=== PATIENT | male | born 1930 | race Caucasian/White ===

== ENCOUNTER 2018-02-28 10:10 | Outpatient (CLI) | payer MEDICARE ==
--- NOTE | 2018-02-28 11:39 | ULT ---
TESTICULAR ULTRASOUND WITH DOPPLER: Date 02/28/18 HISTORY: Follow-up exam is required. Previous ultrasound suggested a left and right testicle. Based on patient history and physical exam, the left testicle appears to be absent. TECHNIQUE: Castellon scale, color flow, and Doppler imaging of the right testicle was performed. Images were reviewed . Real-time images were also performed in the presence of a radiology. COMPARISON: 02/22/18. FINDINGS: Right testicle is identified with a normal echotexture. No intratesticular mass. Right testicle measu res 3.2 x 4.3 x 2.5 cm. Right epididymis has a normal echotexture, measuring 0.7 x 1.0 cm. There is v ascular flow to the right testicle. Left hemiscrotum: No evidence of a left testicle. Large left-sided hydrocele is identified. IMPRESSION: 1. Large left-sided hydrocele. No evidence of a left testicle. 2. Normal appearing right testicle with vascular flow. POS: [facility]
== END 2018-02-28 10:11 | disposition home or self-care (01) ==
LOC: ULT 10:10
PROVIDERS: ATTEND Urology
DX: N40.0 Benign prostatic hyperplasia without lower urinary tract symptoms (principal); N43.3 Hydrocele, unspecified

== ENCOUNTER 2018-04-01 16:18 | Observation (INO) | payer MEDICARE ==
[2018-04-01 16:45] LABS: #Lymphocytes 0.5 thou/uL (1.20-3.40); #Monocytes 0.4 thou/uL (0.11-0.59); #Neutrophils 3.6 thou/uL (1.40-6.50); %Eosinophils 0.6 % (0.0-10.0); %Lymphocytes 10.2 % (21.0-51.0); %Monocytes 8.7 % (0.0-10.0); %Neutrophils 80.6 % (42.0-75.0); Hemoglobin 11.8 g/dL (14.0-18.0); Mean Corpuscular HGB CONC 34.3 g/dL (32.0-36.0); Mean Corpuscular Volume 84.5 fL (78.0-98.0); Mean Platelet Volume 6.2 fL (7.4-10.4); Platelet Count 168 thou/uL (130-400); RBC Distribution Width 12.9 % (11.5-14.5); Red Blood Cell (RBC) Count 4.07 mill/uL (4.70-6.10); White Blood Cell (WBC) Count 4.5 thou/uL (4.8-10.8)
[2018-04-01 17:02] LABS: ALT (SGPT) 8 U/L (8-55); AST (SGOT) 15 U/L (5-34); Albumin 3.8 g/dL (3.4-4.8); Alkaline Phosphatase 121 U/L (40-150); Anion Gap 12 mmol/L (10-20); BUN (Urea Nitrogen) 26 mg/dL (8.4-25.7); Bilirubin, Total 0.4 mg/dL (0.2-1.2); Calc. Creatinine Clearance 0 mL/min (70-130); Carbon Dioxide 22 mmol/L (23-31); Chloride 106 mmol/L (98-107); Estimated GFR-MDRD 52; Globulin 2.9 g/dL (2.4-3.5); Glucose 103 mg/dL (83-110); Lipase 25 U/L (8-78); Magnesium 1.9 mg/dL (1.6-2.6); Potassium 3.6 mmol/L (3.5-5.1); Protein, Total 6.7 g/dL (5.8-8.1); Sodium 136 mmol/L (136-145)
[2018-04-01 17:03] LABS: Bilirubin Negative (Negative); Blood, Urine Moderate (Negative); Clarity CLOUDY (Clear); Glucose, Urine (Dipstick) Negative (Negative); Leukocyte Large (Negative); Nitrite Positive (Negative); Protein, Urine (Dipstick) Trace mg/dL (Neg-Trace); Specific Gravity, Urine 1.016 (1.002-1.036); Urobilinogen 0.2 mg/dL (0.2-1.0)
[2018-04-01 17:06] LABS: CKMB 1.3 ng/mL (0-6.6); Troponin I 0.029 ng/mL (< 0.028)
[2018-04-01 17:06] LABS: Bacteria/HPF 4+ HPF (None Seen); RBC/HPF 0-3 HPF (0-3); Squamous Epithelial None Seen HPF (0-3); WBC/HPF 21-50 HPF (0-3)
[2018-04-01 17:08] LABS: Pathc Cast-AUWi Flag 3.19 (0-2.49)
[2018-04-01 17:15] LABS: Hyaline Casts/LPF 0-3 HYALINE CAST LPF (0-3 Hyaline); Manual Microscopic Reviewed? No Path Casts Seen
--- NOTE | 2018-04-01 17:31 | RAD ---
PORTABLE CHEST ONE VIEW: 04/01/18 at 4:02 p.m. HISTORY: Cough. FINDINGS: Comparison is made with 03/26/17. Changes of median sternotomy again seen. The heart size is normal. The aorta is tortuous. Chronic aurelia nges are again noted. There is continued mild elevation of the left hemidiaphragm. No focal areas of consolidation, pneumothoraces or pleural effusions are seen. Deformity in the right upper lateral [address] wall and scapula and right ribs is again seen. IMPRESSION: No acute process. POS: [facility]
[2018-04-01] MEDS ORDERED: cefTRIAXone\\ROCEPHIN 1 GM VIAL ONE (20:13)
[2018-04-01 20:40] LABS: Troponin I 0.033 ng/mL (< 0.028)
[2018-04-01 21:36] VITALS: BMI 27.1
[2018-04-01] MEDS ORDERED: Famotidine 20 MG TAB PO SCH ×2 (21:44→22:00)
[2018-04-01] MEDS ORDERED: cloNIDine 0.1 MG TAB PO PRN (21:44)
[2018-04-01] MEDS ORDERED: Acetaminophen 500 MG TAB PO PRN (21:44)
[2018-04-01] MEDS ORDERED: Carvedilol 3.125 MG TAB PO SCH ×2 (21:44→22:00)
[2018-04-01] MEDS ORDERED: Ondansetron HCl/PF 4 MG/2 ML Vial IVP PRN (21:44)
[2018-04-01] MEDS ORDERED: hydrALAZINE 20 MG/ML VIAL SLOW IVP PRN (21:44)
[2018-04-01] MEDS ORDERED: Ondansetron ODT 4 MG TAB PO PRN (21:44)
[2018-04-01] MEDS ORDERED: Tamsulosin HCl 0.4 MG CAP PO SCH (23:00)
[2018-04-01 23:01] LABS: Troponin I 0.028 ng/mL (< 0.028)
[2018-04-01] MEDS: Sodium Chloride 0.9% 1,000 ML IV SCH (23:10)
--- NOTE | 2018-04-02 05:45 | HP ---
DATE OF ADMISSION: 04/01/2018 PRIMARY CARE PROVIDER: Dr. Simpson. CHIEF COMPLAINT: General weakness. HISTORY OF PRESENT ILLNESS: This is an 88-year-old male who presents to [facility] Emergency Department complaining of general weakness over the last 48 hours. The pat ient admits to subjective fever measured at 99.2 degrees Fahrenheit. The patient had 2 episodes of d iarrhea, but denies any increased cough, congestion, exposure history, recent travel, or known sick c ontacts. The patient does admit to regular bladder self- catheterization up to 5 times daily due to urinary retention. The patient has been followed by the Urology Service with plans for potential cir cumcision later in 2018. The patient denies any recent falls, trauma, chest pain, unilateral weaknes s, or visual disturbance. The patient states he has mainly been sitting in his recliner, unable to d o his regular activities at home. The patient lives independently normally attending his house chore s as well as garden. The patient denies taking any specific new medication or attempting anything to relieve the symptoms. In the emergency room, the patient underwent general evaluation including scr eening metabolic survey showing urinalysis positive for nitrites and leukocyte esterase concerning fo r infectious process. The patient received Rocephin 1 gram IV x1 dose in addition to aspirin 324 mg. The patient was referred to the Hospitalist Service for admission. PAST MEDICAL HISTORY: 1. Coronary artery disease, chronic and stable. 2. Benign prostatic hypertrophy with urinary retention and scheduled bladder self-catheterizations. 3. Hypertension. 4. History of basal cell carcinoma, status post excision. 5. Chronic Macedo's palsy. 6. History of left-sided crush injury status post to fall off roof in 1973. PAST SURGICAL HISTORY: 1. Status post coronary artery bypass grafting 2003. 2. Status post cataract removal. 3. Status post cardiac catheterization 1991. 4. Status post colonoscopy x4. 5. Status post excision of squamous cell carcinoma. CURRENT MEDICATIONS: 1. Enteric-coated aspirin 81 mg 1 tab p.o. daily. 2. Coreg 3.125 mg p.o. b.i.d. 3. Lisinopril/hydrochlorothiazide 40/50 mg 1 tab p.o. daily. 4. Multivitamin 1 tab p.o. daily. 5. [place] 3 fatty acids 1000 mg p.o. b.i.d. 6. Flomax 0.4 mg p.o. daily. 7. Finasteride 5 mg p.o. daily. ALLERGIES: No known drug allergies. FAMILY HISTORY: Mother of apparent old age at 87 years. Father of myocardial infarction a t age of 52. SOCIAL HISTORY: The patient resides in [place], [place]. No current alcohol, tobacco or illicit drug use. Accompanied by his son and [id number] in the hospital. Functional of all activities of d [facility]. Ambulatory without assistive device. No recent fall. REVIEW OF SYSTEMS: The following complete review of systems was negative, unless otherwise mentioned in the HPI or below: Constitutional: Weight loss or gain, ability to conduct usual activities. Sk in: Rash, itching. Eyes: Double vision, pain. ENT/Mouth: Nose bleeding, neck stiffness, pain, te nderness. Cardiovascular: Palpitations, dyspnea on exertion, orthopnea. Respiratory: Shortness of breath, wheezing, cough, hemoptysis, fever or night sweats. Gastrointestinal: Poor appetite, abdom inal pain, heartburn, nausea, vomiting, constipation, or diarrhea. Genitourinary: Urgency, frequenc y, dysuria, nocturia. Musculoskeletal: Pain, swelling. Neurologic/Psychiatric: Anxiety, depressio n. Allergy/Immunologic: Skin rash, bleeding tendency. PHYSICAL EXAMINATION: VITAL SIGNS: On admission, blood pressure 114/66, pulse 88, respiratory rate is 16, temperature 98.6 degrees Fahrenheit, O2 saturation 93% on room air. GENERAL APPEARANCE: This is an 88-year-old male, alert and oriented x3, pleasant, conversa nt, in no acute distress. HEENT: Pupils are equal, round, and reactive to light and accommodation. Extraocular muscles are in tact. No scleral icterus, no conjunctival injection. Nares patent. OP is clear. Oral mucosa dry a ppearing. NECK: Supple. No cervical adenopathy, no thyromegaly, no carotid bruits, no JVD appreciated. Cervi joshua spine with full active and passive range of motion. No meningeal signs appreciated. CHEST: Lungs are clear to auscultation bilaterally. CARDIOVASCULAR: S1, S2 with 1-2/6 systolic ejection murmur in the right upper sternal border. No ga llop or rub. ABDOMEN: Rounded, soft, nontender, nondistended. Bowel sounds are positive in all four quadrants. There is no hepatosplenomegaly, no abdominal bruits, no rebound or guarding appreciated. EXTREMITIES: Warm and dry with good turgor. No clubbing, cyanosis or asymmetric edema appreciated. Pulses palpable distally at the dorsalis pedis, posterior tibial, and popliteal arteries bilaterally . Capillary refill less than 2 seconds. NEUROLOGIC: Cranial nerves II-XII are grossly intact. No focal deficits appreciated. PERTINENT LABORATORY AND X-RAY FINDINGS: Sodium 136, potassium 3.6, chloride 106, CO2 of 22, anion g ap of 12, BUN 26, creatinine 1.30, estimated GFR 52, glucose 103, calcium 9.0, magnesium 1.9. LFTs w ithin normal limits. Troponin I 0.029, albumin 3.8, lipase 25. CBC showed a white blood cell count of 4.5, hemoglobin 12, hematocrit 34, platelet count 168 with 81% neutrophils. Urinalysis showed mod erate blood, positive nitrite, large leukocyte esterase with 21-50 wbcs per high power field, 4+ bact eria noted. Portable chest x-ray dated 04/01/2018 showed no acute cardiopulmonary process. EKG date d 04/01/2018 by my interpretation shows a sinus mechanism with heart rates in the 80s. Normal R-wave progression noted in the precordial leads. Normal axis. ST-T wave depression noted in V3 through V 6. ASSESSMENT AND PLAN: 1. Urinary tract infection. The patient will be placed in observation status on the telemetry unit. We will continue Rocephin 2 grams IV q.24 hours. Urine culture pending. We will continue intraven ous normal saline at 75 mL per hour. 2. Acute kidney injury, mild. We will continue intravenous fluids as outlined previously. Avoid ne phrotoxic agents and limit contrast exposure. Repeat creatinine in the a.m. 3. Elevated troponin I. We will continue troponin I trending. No current evidence to suggest acute coronary syndrome. Suspect demand state giving patient's urinary tract infection. 4. Urinary retention. We will continue bladder self-catheterizations. Continue Flomax and finaster marcos. 5. Coronary artery disease. Chronic and stable. Resume aspirin 81 mg daily. Continue carvedilol 3 .125 mg b.i.d. 6. Prophylaxis. Sequential compression devices while in bed. Pepcid 20 mg p.o. b.i.d. 7. Code status is FULL. Surrogate medical decision maker is patient's son.
[2018-04-02 06:51] LABS: Anion Gap 12 mmol/L (10-20); BUN (Urea Nitrogen) 22 mg/dL (8.4-25.7); Calc. Creatinine Clearance 66 mL/min (70-130); Calcium 8.8 mg/dL (7.8-10.44); Carbon Dioxide 24 mmol/L (23-31); Chloride 105 mmol/L (98-107); Estimated GFR-MDRD 64; Glucose 98 mg/dL (83-110); Potassium 3.7 mmol/L (3.5-5.1); Sodium 137 mmol/L (136-145)
[2018-04-02 07:28] LABS: Band 11 % (5-11); Hemoglobin 10.3 g/dL (14.0-18.0); Lymphocytes 14 % (21-51); MDiff Complete? YES; Mean Corpuscular HGB CONC 32.6 g/dL (32.0-36.0); Mean Corpuscular Hemoglobin 28.1 pg (27.0-31.0); Mean Corpuscular Volume 86.2 fL (78.0-98.0); Mean Platelet Volume 6.6 fL (7.4-10.4); Monocytes 16 % (0-10); Neutrophil 58 % (42-75); Platelet Count 130 thou/uL (130-400); RBC Distribution Width 12.9 % (11.5-14.5); Reactive Lymphocytes 1 % (0-10); Red Blood Cell (RBC) Count 3.66 mill/uL (4.70-6.10); White Blood Cell (WBC) Count 4.1 thou/uL (4.8-10.8)
[2018-04-02] MEDS ORDERED: Prevnar 13-Val Conj/PF 0.5 ML SYRINGE IM ONE (09:00)
[2018-04-02] MEDS ORDERED: cefTRIAXone\\ROCEPHIN 2 GM in Sodium Chloride 0.9% 100 ML IVPB SCH (09:00)
[2018-04-02] MEDS ORDERED: Tamsulosin HCl 0.4 MG CAP PO SCH ×2 (09:00→21:00)
[2018-04-02] MEDS ORDERED: Aspirin 81 mg Enteric Coated Tablet PO SCH (09:00)
[2018-04-02] MEDS ORDERED: Famotidine 20 MG TAB PO SCH (09:00)
[2018-04-02] MEDS ORDERED: Finasteride 5 MG TAB PO SCH (09:00)
[2018-04-02] MEDS: Sodium Chloride 0.9% 1,000 ML IV SCH (10:42)
[2018-04-02 11:25] VITALS: BP 141/65; TEMP 98.9
--- NOTE | 2018-04-03 01:16 | DIS ---
DATE OF ADMISSION: 04/01/2018 DATE OF DISCHARGE: 04/02/2018 DISCHARGE DIAGNOSES: 1. Urinary tract infection with gram-negative rods. 2. Acute kidney injury, mild, resolving. 3. Elevated troponin I secondary to acute kidney injury. 4. Urinary retention, chronic, with bladder self catheterizations. 5. Coronary artery disease, chronic and stable. CONSULTATIONS: None. PERTINENT LAB AND X-RAY FINDINGS: Creatinine ranged between 1.09 to 1.30, estimated GFR ranging betw een 52 to 64. Magnesium 1.9. Calcium 9.0. Troponin I ranged between 0.028 to 0.033. CBC showed a white blood cell count ranging between 4.1 to 4.5, hemoglobin ranged between 10.3 to 11.8. Urine cul ture dated 04/01/2018 showed greater than 100,000 colonies of gram negative rods. Final identificati on pending. Blood cultures x2 from 04/01/2018 showed no growth to date. Portable chest x-ray dated 04/01/2018 showed no acute cardiopulmonary process. HOSPITAL COURSE: The patient was observed after presenting with generalized weakness. The patient u nderwent general evaluation focused on infectious process after patient presented with low grade feve r. Patient with scheduled bladder self catheterizations at home secondary to urinary retention with attention focused on urinary tract infection. The patient was placed on IV Rocephin and given intrav enous normal saline after mild acute kidney injury was noted. Urine culture did show greater than 10 0,000 colonies of gram-negative rods with transition to Augmentin 500 mg b.i.d. for discharge. Overa ll, patient remained clinically stable throughout the hospital course, tolerating regular oral intake , voiding appropriately and ambulating without assistance or difficulty. I have examined the patient at the time of discharge and discussed followup instructions as well as pertinent laboratory finding s. The patient verbalizes understanding and agreement, and ready for discharge on 04/02/2018. DISCHARGE MEDICATIONS: 1. Augmentin 500 mg 1 tab p.o. b.i.d. x7 days. 2. Enteric-coated aspirin 81 mg p.o. at bedtime. 3. Finasteride 5 mg p.o. daily. 4. Lisinopril/hydrochlorothiazide 10/12.5 mg 1 tab p.o. daily. 5. [place] 3 fatty acids 1000 mg p.o. b.i.d. 6. Flomax 0.4 mg p.o. at bedtime. 7. Tramadol 50 mg p.o. b.i.d. p.r.n. 8. Multivitamin 1 tablet p.o. daily. FOLLOWUP: The patient will follow up with his primary care provider, Dr. Ez Simpson within 7 days of discharge. CONDITION ON DISCHARGE: Stable. ACTIVITY: Ad luther. DIET: Regular. CODE STATUS: FULL. DISPOSITION: Home, 04/02/2018.
== END 2018-04-02 14:13 | disposition home or self-care (01) ==
LOC: ERS 16:18 → 2SW 18:56
PROVIDERS: ADMIT Family Medicine; ATTEND Family Medicine
DX: N39.0 Urinary tract infection, site not specified (principal); N17.9 Acute kidney failure, unspecified; R33.9 Retention of urine, unspecified; I25.10 Atherosclerotic heart disease of native coronary artery without angina pectoris; I10 Essential (primary) hypertension; Z79.899 Other long term (current) drug therapy
CPT/HCPCS: 51701; 71045; 80048; 80053; 82553; 83690; 83735; 84484 ×2; 85007; 85025; 85027; 87040; 87077; 87086; 87186; 90670; 93005; 96361 ×2; 96365; 99285; G0009; G0378; 36415; 81003; 81015; 90471; J0696; J7050

== ENCOUNTER 2018-06-06 05:38 | Day surgery (SDC) | payer MEDICARE ==
[2018-05-30 15:55] VITALS: BMI 28.0
[2018-06-06] MEDS ORDERED: cefTRIAXone\\ROCEPHIN 1 GM VIAL ONE (06:10)
[2018-06-06] MEDS ORDERED: Sodium Chloride 0.9% 100 ML ONE (06:11)
[2018-06-06] MEDS ORDERED: Ampicillin 2 GM in Sodium Chloride 0.9% 100 ML IVPB SCH (06:30)
[2018-06-06] MEDS ORDERED: Iothalamate Meglumine 60% 50 ML VIAL FS ONE (07:03)
[2018-06-06] MEDS ORDERED: Fentanyl 100 MCG/2 ML VIAL ONE (07:27)
[2018-06-06] MEDS ORDERED: Bacitracin Zinc Ointment 30 gm TUBE ONE (07:30)
[2018-06-06] MEDS ORDERED: Furosemide 20 MG/2 ML VIAL ONE (07:30)
[2018-06-06] MEDS ORDERED: Lidocaine 1% (PF) 30 ML VIAL ONE (07:30)
[2018-06-06] MEDS ORDERED: Bupivacaine 0.25% HCL 30 ML VIAL ONE (07:30)
[2018-06-06] MEDS ORDERED: Phenylephrine HCL 10 MG/ML VIAL ONE ×2 (07:33→07:34)
--- NOTE | 2018-06-06 13:40 | OP ---
DATE OF PROCEDURE: 06/06/2018 PREOPERATIVE DIAGNOSES: Benign prostatic hypertrophy, retention, urinary tract infections, mild phim osis. POSTOPERATIVE DIAGNOSES: Benign prostatic hypertrophy, retention, urinary tract infections, mild phi mosis. PROCEDURE: GreenLight laser vaporization of the prostate as well as circumcision. SURGEON: Uma Galvez M.D. ANESTHESIA: General with laryngeal mask airway, as well as penile block using 10 mL lidocaine and Ma rcaine mixture. FINDINGS: Adequate opening of the prostatic urethra. Standard circumcision. A total of 108,876 nate les were used. DRAINS: Drains remaining was 18-Marshallese and 20 Marshallese 2-way. COMPLICATIONS: No complications. ESTIMATED BLOOD LOSS: Minimal. INDICATIONS: The patient is an 88-year-old male who I saw in the office and was requiring CSE but he did have occasional episodes where he was able to void. For this reason, we discussed resecting his remaining and recurrent growth from his remote prior TURP in hopes that he would be able to cath les s or potentially not at all, as well as doing a circumcision to reduce the chance for infections. TECHNIQUE: The patient was brought into the room by Anesthesia, laid on the table in supine position . After receiving general anesthetic, legs were placed in lithotomy position. His perineum was prep ped and draped in sterile fashion. Using a 22.5 Marshallese cystoscope and 30 degree lens which was trave rsed and the bladder inspected. Ureteral orifices were identified and preserved throughout the case. They were patulous and far back. The bladder neck was elevated. The proximal middle lobe was take n down still, but the bladder neck itself was elevated with both recurrence, and somewhat of a contra ction. This was taken all the way down to the trigone and was taken down to the level of the bladder floor posteriorly, power level of 80 was used near the bladder neck. The power level of 80 was used near the vera and a power of 180 was used to remove the remaining lateral lobes and bring that bladd er neck down to the level of the mid prostatic floor. The anterior portion of the prostate, both lef t and right was hanging down as well so these were transected or enucleated. All the chips were annabelle sophie. Scope was put back in with the bladder decompressed and hemostasis was insured. At this point t he vera itself was kind of sticking up and potentially obstructive so this was vaporized. Then, agacalvin n, the scope was broken apart so that the bladder could be fully irrigated. All chips and debris wer e irrigated out. The scope was removed in its entirety and a 20 Marshallese Hutchins was placed to gravity a nd plugged and the patient was then returned to supine and transferred to an OR suite. In supine position, a penile block was delivered using 10 mL of lidocaine and Marcaine and then he wa s prepped and draped in sterile fashion. Using 2 circumferential incisions, 1 with the foreskin redu josee to the level of the garcia, the other with the foreskin retracted approximately 5 mm proximal to the garcia, the skin was excised sharply. Hemostasis was achieved with electrocautery and then the s kin edges were reapproximated using 3-0 and 4-0 chromic in interrupted fashion. Bacitracin, sterile dressing was applied including Coban wrap. Then, the catheter was unplugged and irrigated and minima l blood was noted, otherwise fairly clear, had no clots, so at this point [facility] and the patient was awakened fully and transferred to the PACU in stable condition.
== END 2018-06-06 13:55 | disposition home or self-care (01) ==
LOC: SDC 05:38
PROVIDERS: ATTEND Urology
PROC: 0V507ZZ Destruction of Prostate, Via Natural or Artificial Opening (ICD-10-PCS; principal; 2018-06-06)
PROC: 0VTTXZZ Resection of Prepuce, External Approach (ICD-10-PCS; 2018-06-06)
DX: N41.1 Chronic prostatitis (principal); N47.1 Phimosis; N40.1 Benign prostatic hyperplasia with lower urinary tract symptoms; R33.8 Other retention of urine; E78.00 Pure hypercholesterolemia, unspecified; I10 Essential (primary) hypertension; Z79.82 Long term (current) use of aspirin; Z79.899 Other long term (current) drug therapy
CPT/HCPCS: 88305; J0131; J0290; J0696; J1940; J2001; J2370; J3010; J7050; Q9961; S0020

== ENCOUNTER 2018-08-16 08:42 | Day surgery (SDC) | payer MEDICARE ==
[2018-08-15 13:25] VITALS: BMI 29.9
[2018-08-16] MEDS ORDERED: PROPOFOL 200 MG/20 ML VIAL ONE (09:07)
[2018-08-16 09:45] LABS: #Eosinphils 0.1 thou/uL (0.0-0.7); #Lymphocytes 1.1 thou/uL (1.20-3.40); #Monocytes 0.5 thou/uL (0.11-0.59); #Neutrophils 3.1 thou/uL (1.40-6.50); %Basophils 0.5 % (0.0-1.0); %Eosinophils 1.9 % (0.0-10.0); %Lymphocytes 22.3 % (21.0-51.0); %Monocytes 10.4 % (0.0-10.0); %Neutrophils 64.9 % (42.0-75.0); Hemoglobin 11.8 g/dL (14.0-18.0); Mean Corpuscular HGB CONC 32.2 g/dL (32.0-36.0); Mean Corpuscular Hemoglobin 26.9 pg (27.0-31.0); Mean Corpuscular Volume 83.8 fL (78.0-98.0); Mean Platelet Volume 6.3 fL (7.4-10.4); Platelet Count 233 thou/uL (130-400); RBC Distribution Width 13.4 % (11.5-14.5); Red Blood Cell (RBC) Count 4.37 mill/uL (4.70-6.10); White Blood Cell (WBC) Count 4.8 thou/uL (4.8-10.8)
[2018-08-16 09:59] LABS: Anion Gap 11 mmol/L (10-20); BUN (Urea Nitrogen) 22 mg/dL (8.4-25.7); Calc. Creatinine Clearance 75 mL/min (70-130); Calcium 9.8 mg/dL (7.8-10.44); Carbon Dioxide 27 mmol/L (23-31); Chloride 104 mmol/L (98-107); Estimated GFR-MDRD 65; Glucose 99 mg/dL (83-110); Sodium 138 mmol/L (136-145)
[2018-08-16] MEDS ORDERED: Bacitracin Zinc Ointment 30 gm TUBE ONE (10:56)
[2018-08-16] MEDS ORDERED: Lidocaine 1% w/Epinephrine 1:100K 30 ML VIAL ONE (10:56)
[2018-08-16] MEDS ORDERED: Fentanyl 100 MCG/2 ML VIAL ONE (11:02)
--- NOTE | 2018-08-16 12:46 | EKG ---
Test Reason : PREOP Blood Pressure : / mmHG Vent. Rate : 064 BPM Atrial Rate : 064 BPM P-R Int : 206 ms QRS Dur : 094 ms QT Int : 418 ms P-R-T Axes : -12 043 080 degrees QTc Int : 431 ms Sinus rhythm with frequent Premature ventricular complexes in a pattern of bigeminy Nonspecific T wave abnormality Abnormal ECG When compared with ECG of 01-APR-2018 16:35, Premature ventricular complexes are now Present T wave inversion no longer evident in Anterior leads Confirmed by DR. Warren PELAEZ ([id number]) on 08/16/2018 12:46:23 PM Referred By: SALVADOR Confirmed By:DR. Warren PELAEZ
--- NOTE | 2018-08-17 15:05 | OP ---
DATE OF PROCEDURE: 08/16/2018 PREOPERATIVE DIAGNOSIS: Nasal tip basal cell carcinoma. POSTOPERATIVE DIAGNOSIS: Nasal tip basal cell carcinoma. PROCEDURES: 1. Wide local excision of nasal tip. 2. Bilobed local regional transposition flap. SURGEON: Reynaldo Camejo M.D. ESTIMATED BLOOD LOSS: 2 mL. COMPLICATIONS: None. ANESTHESIA: TIVA. PROCEDURE: The patient was taken to the operating room and placed supine on the table. TIVA anesthe brie was obtained by the Anesthesia staff. The nasal cavity and the nose was prepped and draped for s tandard surgical procedure. Following this, 2 mL of 1% lidocaine with epinephrine was injected into the nasal tip and the advancement area. Following this, a 5-8 mm margin was taken around this, the n noé tip cancer. The margins were sent for pathological analysis which showed no residual malignancy . Following this, a bilobed flap was outlined and then transposed covering the area. The flap was c losed using Monocryl stitches for the subcuticular layer and Prolene stitches for the skin. The ethel ent tolerated the procedure well.
--- NOTE | 2018-08-22 05:28 | PQF ---
[facility] POST DISCHARGE CLINICAL DOCUMENTATION IMPROVEMENT CLARIFICATION FORM l Todays Date: 08/22/18 l Patients Name ERIC MONTES l l Admit Date 08/16/18 l Disch Date 08/16/18 Estate Planning Attorney Name Jose Xiong Email: [email or web address] Cell: [phone] To be completed by Estate Planning Attorney: Present Clinical Indicators - Signs / Symptoms Results and Location in Medical Record [ ] Documentation of: [ ] [ ] Documentation of: [ ] [ ] Documentation of: [ ] [ ] Documentation of: [ ] [ ] Risks [ ] [ ] [ ] Treatment [ ] BASAL CELL CARCINOMA OF NOSE Query for area (sq cm) of transposition flap [ ] [ ] To be completed by Physician: ANAMIKA MERA The documentation in this patients record requires clarification to ensure coding compliance and accuracy. Check the appropriate box and include in your discharge summary. [ ] [ ] [ ] [ ] Please check this box if this does not apply to this patient [ ] Unable to determine [ ] Other diagnosis: Review the following information and exercise your independent professional judgment in responding to the clarification. Based upon the clinical findings, risk factors, and treatment, please clarify if you are treating one of the above probable or suspected diagnoses. Physician Signature: Date Time MTDD
== END 2018-08-16 12:54 | disposition home or self-care (01) ==
LOC: SDC 08:42
PROVIDERS: ATTEND Otolaryngology Plastic Surgery within the Head & Neck
PROC: 0HX1XZZ Transfer Face Skin, External Approach (ICD-10-PCS; principal; 2018-08-16)
PROC: 0HB1XZZ Excision of Face Skin, External Approach (ICD-10-PCS; 2018-08-16)
DX: C44.311 Basal cell carcinoma of skin of nose (principal); L57.0 Actinic keratosis; L57.8 Other skin changes due to chronic exposure to nonionizing radiation; E78.00 Pure hypercholesterolemia, unspecified; I10 Essential (primary) hypertension; I25.10 Atherosclerotic heart disease of native coronary artery without angina pectoris; I25.2 Old myocardial infarction; G62.9 Polyneuropathy, unspecified; Z79.82 Long term (current) use of aspirin; Z79.899 Other long term (current) drug therapy
CPT/HCPCS: 36415; 80048; 85025; 88305; 88331; 93005; 93010; J2001; J2704; J3010

== ENCOUNTER 2019-03-08 09:22 | Outpatient (CLI) | payer MEDICARE ==
[~2019-03-08 09:22] MED LIST: Iopamidol 370 76% 100 ML VIAL ONE
--- NOTE | 2019-03-08 12:21 | CT ---
CT ANGIOGRAM NECK WITH CONTRAST: DATE: 03/08/2019. 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 TECHNIQUE: Following IV injection of 70 mL of Isovue 370, arterial bolus chasing technique scan was performed fr om slightly inferior to the sarah to the lower edge of the orbits. Coronal and sagittal 3D MIP recon structions. FINDINGS: There is a type II odontoid fracture with sclerotic fracture edges, and nonunion, with minimal dorsal angulation and minimal dorsal displacement of the superior fragment. Multilevel high-grade facet DJ D at upper and mid levels. High-grade degenerative disk disease at mid and lower levels. Multiple, displaced old right rib fracture deformities, many of them protruding into the right pleura l space and displacing adjacent lung parenchyma. AORTIC ARCH: Ectasia and mild to moderate atherosclerotic calcification. No focal aneurysm. INNOMINATE: No high-grade stenosis. RIGHT SUBCLAVIAN: No high-grade stenosis. RIGHT COMMON CAROTID: No high-grade stenosis. RIGHT INTERNAL CAROTID: Heavily calcified atheromatous plaque proximally, including at origin at the carotid bulb, causing an estimated 20-35% stenosis. Heavily calcified plaque at carotid siphon making stenosis estimation difficult. RIGHT VERTEBRAL: Calcified plaque at origin causing severe stenosis. Questionable moderate to severe stenosis at the C5-6 level. The vessel is patent through the intracranial segment. LEFT SUBCLAVIAN: No high-grade stenosis. LEFT COMMON CAROTID: No focal short-segment acquired stenosis. LEFT INTERNAL CAROTID: Heavily calcified atheromatous plaque at proximal levels, including at origin at carotid bulb. At a distance of approximately 2 cm superior to its origin, there is severe stenosis with estimated 75 to 85% luminal narrowing due to a combination of calcified and noncalcified plaque. Severely calcified plaque at carotid siphon making luminal stenosis difficult to estimate. LEFT VERTEBRAL: Calcified plaque at origin causing severe stenosis. No high-grade stenosis in the rest of the left v ertebral. Left vertebral is slightly dominant. IMPRESSION: 1. Severe stenosis at proximal left internal carotid artery approximately 2 cm distal to its origin. 2. Carotid atherosclerotic disease heavily involving bilateral proximal internal carotid arteries. 3. 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 4. Old, nonunited type II odontoid fracture. POS: [facility]
== END 2019-03-08 09:23 | disposition home or self-care (01) ==
LOC: SCSCT 09:22
PROVIDERS: ATTEND Thoracic Surgery (Cardiothoracic Vascular Surgery)
DX: I65.29 Occlusion and stenosis of unspecified carotid artery (principal); I65.03 Occlusion and stenosis of bilateral vertebral arteries; Z87.81 Personal history of (healed) traumatic fracture
CPT/HCPCS: 70498; 82565; Q9967

== ENCOUNTER 2019-03-15 01:05 | Outpatient (CLI) | payer MEDICARE ==
[2019-03-15 10:00] LABS: Hemoglobin 11.2 g/dL (14.0-18.0); Mean Corpuscular HGB CONC 33.1 g/dL (32.0-36.0); Mean Corpuscular Hemoglobin 27.2 pg (27.0-31.0); Mean Corpuscular Volume 82.3 fL (78.0-98.0); Mean Platelet Volume 6.9 fL (7.4-10.4); Platelet Count 169 thou/uL (130-400); Red Blood Cell (RBC) Count 4.12 mill/uL (4.70-6.10); White Blood Cell (WBC) Count 4.5 thou/uL (4.8-10.8)
[2019-03-15 10:22] LABS: Anion Gap 11 mmol/L (10-20); BUN (Urea Nitrogen) 22 mg/dL (8.4-25.7); Calc. Creatinine Clearance 0 mL/min (70-130); Calcium 9.5 mg/dL (7.8-10.44); Carbon Dioxide 29 mmol/L (23-31); Chloride 103 mmol/L (98-107); Estimated GFR-MDRD 60; Glucose 89 mg/dL (83-110); Potassium 4.8 mmol/L (3.5-5.1); Sodium 138 mmol/L (136-145)
--- NOTE | 2019-03-15 20:05 | EKG ---
Test Reason : Blood Pressure : / mmHG Vent. Rate : 064 BPM Atrial Rate : 064 BPM P-R Int : 208 ms QRS Dur : 092 ms QT Int : 408 ms P-R-T Axes : -21 052 095 degrees QTc Int : 420 ms Normal sinus rhythm Left ventricular hypertrophy with repolarization abnormality Abnormal ECG When compared with ECG of 16-AUG-2018 09:56, Premature ventricular complexes are no longer Present Confirmed by SHIV BOLIVAR, SBibiana (4) on 03/15/2019 8:04:34 PM Referred By: ELVIS Confirmed By:DR. Arelis CHANEY MD
== END 2019-03-15 01:06 | disposition home or self-care (01) ==
LOC: LABBT 01:05
PROVIDERS: ATTEND Thoracic Surgery (Cardiothoracic Vascular Surgery)
DX: Z01.818 Encounter for other preprocedural examination (principal); I65.22 Occlusion and stenosis of left carotid artery
CPT/HCPCS: 80048; 85027; 93005; 93010

== ENCOUNTER 2019-03-15 08:30 | Inpatient (IN) | payer MEDICARE ==
[2019-03-16] MEDS ORDERED: Bupivacaine HCl 0.5%/Epinephrine 1:200,000/PF 30 ml Vial ONE (12:42)
[2019-03-16] MEDS ORDERED: Heparin 5,000 UNITS/ML VIAL ONE (12:44)
[2019-03-16] MEDS ORDERED: Fentanyl 100 MCG/2 ML VIAL ONE ×2 (13:12→14:43)
[2019-03-16] MEDS ORDERED: Protamine Sulfate 50 MG/5 ML VIAL ONE (14:28)
[2019-03-16] MEDS ORDERED: SUGAMMADEX SODIUM 500 MG/5 ML VIAL ONE (14:49)
[2019-03-16] MEDS ORDERED: Ondansetron PF 4 MG/2 ML Vial IVP PRN (15:08)
[2019-03-16] MEDS ORDERED: traMADol HCl 50 MG TAB PO PRN (15:08)
[2019-03-16] MEDS ORDERED: Acetaminophen 325 MG TAB PO PRN (15:08)
[2019-03-16] MEDS ORDERED: Phenylephrine 10 MG/NS 250 ML 250 ML IVPB PRN (15:08)
[2019-03-16] MEDS ORDERED: Nitroglycerin 50 MG/250 ML BOT 250 ML IVPB PRN (15:08)
[2019-03-16] MEDS ORDERED: Fentanyl 100 MCG/2 ML VIAL SLOW IVP PRN (15:08)
[2019-03-16] MEDS ORDERED: Sodium Chloride 0.9% 1,000 ML IV SCH (15:15)
[2019-03-16 16:28] VITALS: BP 103/52
[2019-03-16 16:30] VITALS: BMI 26.5
[2019-03-16] MEDS: CEFAZOLIN 2 GM in Premix Bag 1 BAG IVPB SCH (20:36)
[2019-03-17] MEDS: CEFAZOLIN 2 GM in Premix Bag 1 BAG IVPB SCH (06:00)
[2019-03-17 07:06] VITALS: TEMP 98
[2019-03-17] MEDS ORDERED: Aspirin Chewable 81 MG TAB PO SCH (09:00)
--- NOTE | 2019-03-19 13:44 | DIS ---
DATE OF ADMISSION: 03/16/2019 DATE OF DISCHARGE: 03/17/2019 Admitted with critical left carotid stenosis and underwent left carotid endarterectomy from which he did well. He will be discharged to resume his home medicines and consideration given to TAVR in the future per Dr. Rios for severe aortic valve stenosis. Job ID: [id number]
--- NOTE | 2019-03-19 14:31 | OP ---
DATE OF PROCEDURE: 03/16/2019 PREOPERATIVE DIAGNOSIS: Critical left carotid stenosis. POSTOPERATIVE DIAGNOSIS: Critical left carotid stenosis. PROCEDURE PERFORMED: Left carotid endarterectomy with bovine patch angioplasty. ANESTHESIA: General. ESTIMATED BLOOD LOSS: Less than 100. DESCRIPTION OF PROCEDURE: After adequate anesthesia had been obtained, the patient had some fairly significant cervical arthritis and his neck would not extend or turn. Ultrasound was used to guide the potential incision following which the patient was prepped and draped. Incision was made, carried through the platysma, isolating common, internal and external carotid arteries. Hypoglossal nerve was identified and the small arterial branch coursed around it was clipped and divided. Facial veins x3 were ligated, clipped and divided. 7500 of heparin was given, following which clamps were applied. Arteriotomy performed. Incision was extended distally more than anticipated to get past the plaque. A 12-Japanese shot was placed, following which endarterectomy was performed with satisfactory tapering distally. Following irrigation of the entire area and removing any loose debris, a bovine patch was used to close the arteriotomy. Prior to completing the suture line, the shunt was removed and the vessels backflushed and forward flushed and flow restored up the external and then internal carotid artery. Protamine was given to partially reverse the heparin and after obtaining good hemostasis, the wound was irrigated and closed in layers. Job ID: [id number]
== END 2019-03-17 09:13 | disposition home or self-care (01) | DRG 39 ==
LOC: SURG A 03-16 10:27 → CCU 03-16 16:09
PROVIDERS: ADMIT Thoracic Surgery (Cardiothoracic Vascular Surgery); ATTEND Thoracic Surgery (Cardiothoracic Vascular Surgery)
PROC: 03CJ0ZZ Extirpation of Matter from Left Common Carotid Artery, Open Approach (ICD-10-PCS; principal; 2019-03-16)
PROC: 03UJ0JZ Supplement Left Common Carotid Artery with Synthetic Substitute, Open Approach (ICD-10-PCS; 2019-03-16)
DX: I65.22 Occlusion and stenosis of left carotid artery (principal); I25.10 Atherosclerotic heart disease of native coronary artery without angina pectoris; Z95.1 Presence of aortocoronary bypass graft; Z79.899 Other long term (current) drug therapy; Z79.82 Long term (current) use of aspirin
CPT/HCPCS: 80048; 85027; 93005; 93010; J0670; J0690; J1642; J1644; J2720; J3010